=== PATIENT | male | born 1985 | race Caucasian/White ===

== ENCOUNTER 2016-12-06 21:36 | Emergency (ER) | payer OTHER ==
[2016-12-07 00:26] VITALS: BP 123/54
== END 2016-12-07 00:26 | disposition home or self-care (01) ==
LOC: ED 21:36
DX: S16.1XXA Strain of muscle, fascia and tendon at neck level, initial encounter (principal); G89.29 Other chronic pain; X58.XXXA Exposure to other specified factors, initial encounter; Y93.89 Activity, other specified; Y99.8 Other external cause status; Y92.89 Other specified places as the place of occurrence of the external cause